=== PATIENT | female | born 1995 | race Caucasian/White ===

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

== ENCOUNTER 2018-08-03 17:18 | Emergency (ER) | payer OTHER ==
[2018-08-03 17:53] VITALS: BP 114/84
--- NOTE | 2018-08-03 18:49 | EDM.PDOC ---
ED HPI GENERAL MEDICAL PROBLEM - General Chief Complaint: Genitourinary Problem Stated Complaint: BLEEDING Time Seen by Provider: 08/03/18 17:30 Source of Information: Reports: Patient History Limitations: Reports: No Limitations - History of Present Illness INITIAL COMMENTS - FREE TEXT/NARRATIVE: c/o vag bleeding pt has had a slight vag d/c x 2-3m, not enough to wear a pad has had regular menses qmonth on BCP, LMP 2w ago yesterday she used an antifungal cream without pain or discomfort, today she has some vaginal bleeding which she thinks may have been d/t the cream no pain, no dysuria, has h/o UTIs labs are neg, u/a neg, wet prep neg external exam is neg cause of mild vag break through bleeding not clear, no signs or sxs of infection pt does have a pelvic exam scheduled 08/17 at [facility] one sexual partner in the past yr not sure if she has had a pap test - Related Data Allergies Allergy/AdvReac Type Severity Reaction Status Date / Time Penicillins Allergy Mild Hives Verified 09/23/16 23:11 Home Meds: Home Meds Levonorgestrel-Ethin Estradiol [Falmina-28 Tablet] 1 each PO DAILY 09/04/16 [ History] Propranolol HCl [Propranolol] 60 mg PO DAILY 08/03/18 [History] lamoTRIgine [Lamotrigine] 100 mg PO BID 08/03/18 [History] Past Medical History - Past Health History Medical/Surgical History: Denies Medical/Surgical History Psychiatric History: Reports: Depression - Past Surgical History HEENT Surgical History: Reports: Oral Surgery, Other (See Below) GI Surgical History: Reports: Appendectomy Social & Family History - Caffeine Use Caffeine Use: Reports: Coffee ED ROS GENERAL - Review of Systems Review Of Systems: See Below Constitutional: Reports: No Symptoms HEENT: Reports: No Symptoms Respiratory: Reports: No Symptoms Cardiovascular: Reports: No Symptoms Endocrine: Reports: No Symptoms GI/Abdominal: Reports: No Symptoms : Reports: Discharge. Denies: Frequency, Urgency Musculoskeletal: Reports: No Symptoms Skin: Reports: No Symptoms Neurological: Reports: No Symptoms Psychiatric: Reports: No Symptoms Hematologic/Lymphatic: Reports: No Symptoms Immunologic: Reports: No Symptoms ED EXAM, RENAL/ - Physical Exam Exam: See Below Exam Limited By: No Limitations General Appearance: Alert, WD/WN, Anxious GI/Abdominal: Normal Bowel Sounds, Soft, Non-Tender, No Distention, No Mass (Female) Exam: Other (BUS nl female, there is some RBC at the labia, no cuts , no swell, internal exam deferred, nursing present the entire time I was in the room) Course - Vital Signs Last Recorded V/S: Last Vital Signs Temp 36.8 C 08/03/18 17:20 Pulse 76 08/03/18 17:20 Resp 18 08/03/18 17:20 BP 114/84 08/03/18 17:20 Pulse Ox 100 08/03/18 17:20 - Orders/Labs/Meds Orders: Active Orders 24 hr Category Date Time Status CHLAMYDIA/GC AMPLIFICATION Stat Lab 08/03/18 17:36 Ordered Labs: Laboratory Tests 08/03/18 Range/Units 17:37 Urine Color Yellow (YELLOW) Urine Appearance Clear (CLEAR) Urine pH 8.0 H (5.0-6.5) Ur Specific [place] 1.015 (1.010-1.025) Urine Protein Negative (NEGATIVE) mg/dL Urine Glucose (UA) Normal (NORMAL) mg/dL Urine Ketones Negative (NEGATIVE) mg/dL Urine Occult Blood Large H (NEGATIVE) Urine Nitrite Negative (NEGATIVE) Urine Bilirubin Negative (NEGATIVE) Urine Urobilinogen Normal (NEGATIVE) mg/dL Ur Leukocyte Esterase Negative (NEGATIVE) Urine RBC 20-30 H (0-5) Urine WBC 0-5 (0-5) Ur Squamous Epith Cells Few H (NS,R,O) Urine Bacteria Few H (NS) Departure - Departure Time of Disposition: 18:48 Disposition: Home, Self-Care 01 Condition: Good Clinical Impression: Vaginal discharge - Discharge Information *PRESCRIPTION DRUG MONITORING PROGRAM REVIEWED*: Not Applicable *COPY OF PRESCRIPTION DRUG MONITORING REPORT IN PATIENT ESSENCE: Not Applicable Instructions: Vaginitis Referrals: Barby Mendoza OFFICE MACHINE INSTALLER [Primary Care Provider] - Additional Instructions: Your tests are normal. The vaginal discharge appears to be physiologic (normal). Cream or medications will not provide additional benefit. Continue control pills as prescribed. See your physician on August 17 as scheduled for further recommendations. - My Orders Last 24 Hours: My Active Orders 08/03/18 17:36 CHLAMYDIA/GC AMPLIFICATION Stat - Assessment/Plan Last 24 Hours: My Active Orders 08/03/18 17:36 CHLAMYDIA/GC AMPLIFICATION Stat
[2018-08-06 12:10] LABS: CHLAMYDIA TRACHOMATIS, NAA Positive (Negative); NEISSERIA GONORRHOEAE, NAA Negative (Negative)
== END 2018-08-03 18:55 | disposition home or self-care (01) ==
LOC: FB.ED 17:18
DX: N89.8 Other specified noninflammatory disorders of vagina (principal); F32.9 Major depressive disorder, single episode, unspecified; Z88.0 Allergy status to penicillin; Z79.899 Other long term (current) drug therapy
CPT/HCPCS: 81001; 87210; 87491; 87591; 99282; 99284